=== PATIENT | female | born 1955 | race Caucasian/White ===

== ENCOUNTER 2019-07-17 11:16 | Emergency (ER) | payer SELFPAY ==
--- OUTSIDE RECORDS SUMMARY | 2019-07-17 11:19 | XMS REPORT ---
:1955 Author Organization eClinicalWorks Care Team Providers Name Role Phone Kasie Hernandez Provider Role Unavailable Allergies, Adverse Reactions, Alerts Substance Reaction Event Type N.K.D.A. Info Not Available Non Drug Allergy Problems Problem Type Condition Code Onset Dates Condition Status Assessment Hypertension I10 Active Assessment Anxiety F41.9 Active Problem Unspecified sprain of unspecified S73.109A Active hip, initial encounter Problem Hypertension I10 Active Problem Screening for breast cancer Z12.31 Active Problem Pure hypercholesterolemia E78.00 Active Problem Anxiety F41.9 Active Problem Gastro-esophageal reflux disease K21.9 Active without esophagitis Medications Medication Code Code Instructions Start End Date Status Dosage System Date Lisinopril [facility] 69079387071 10 Orally Once a Active take one day tablet by mouth daily Paxil [facility] 00191035837 20 Orally Once a Active take one day tablet by mouth daily Diclofenac [facility] 95398113403 50 MG Orally Active 1 tablet Sodium Twice a day with food or milk Results No Known Results Summary Purpose eClinicalWorks Submission
--- NOTE | 2019-07-17 13:34 | RAD REPORT ---
EXAM DESCRIPTION: RAD - Hip Right 2 View - 07/17/2019 1:26 pm CLINICAL HISTORY: PAIN COMPARISON: No comparisons FINDINGS: No acute fracture or dislocation seen. No AVN identified. Mild osteoarthritis.
--- NOTE | 2019-07-17 13:42 | ER ---
Nurse's Notes [facility] Name: Joselyn Gomes Age: 63 yrs Sex: Female : 1955 Arrival Date: 07/17/2019 Time: 11:19 Bed 24 Private MD: Diagnosis: Pain in right hip Presentation: 07/17 11:46 Presenting complaint: Patient states: "a couple weeks ago I was on a ladder and I fell ss into a bucket of Kathryn lights, I had a few bumps and bruises, but now my hip is starting to hurt." C/o R hip pain x 1 week. Transition of care: patient was not received from another setting of care. Onset of symptoms is unknown. Risk Assessment: Do you want to hurt yourself or someone else? Patient reports no desire to harm self or others. Initial Sepsis Screen: Does the patient meet any 2 criteria? No. Patient's initial sepsis screen is negative. Does the patient have a suspected source of infection? No. Patient's initial sepsis screen is negative. Care prior to arrival: None. 11:46 Method Of Arrival: Ambulatory ss 11:46 Acuity: MISTI 4 ss Historical: - Allergies: 11:47 No Known Allergies; ss - PMHx: 11:47 Hypertension; Anxiety; ss - PSHx: 11:47 Cholecystectomy; Tonsillectomy; Hernia repair; ss - Immunization history:: Adult Immunizations up to date. - Social history:: Smoking status: Patient denies any tobacco usage or history of. - Ebola Screening: : Patient denies exposure to infectious person Patient denies travel to an Ebola-affected area in the 21 days before illness onset. Screenin:22 Abuse screen: Denies threats or abuse. Denies injuries from another. Nutritional mg2 screening: No deficits noted. Tuberculosis screening: No symptoms or risk factors identified. Fall Risk Fall in past 12 months (25 points). Assessment: 12:21 General: Appears in no apparent distress. comfortable, Behavior is calm, cooperative. mg2 Pain: Complains of pain in right hip. Neuro: Level of Consciousness is awake, alert, obeys commands, Oriented to person, place, time, situation. Cardiovascular: Capillary refill < 3 seconds Patient's skin is warm and dry. Respiratory: Airway is patent Respiratory effort is even, unlabored, Respiratory pattern is regular, symmetrical. GI: No signs and/or symptoms were reported involving the gastrointestinal system. : No signs and/or symptoms were reported regarding the genitourinary system. EENT: No signs and/or symptoms were reported regarding the EENT system. Derm: Skin is intact, is healthy with good turgor, Skin is pink, warm \\T\\ dry. normal. Musculoskeletal: Circulation, motion, and sensation intact. Capillary refill < 3 seconds, Reports pain in right hip. 13:15 Reassessment: Patient appears in no apparent distress at this time. Patient and/or mg2 family updated on plan of care and expected duration. Pain level reassessed. Patient is alert, oriented x 3, equal unlabored respirations, skin warm/dry/pink. Vital Signs: 11:47 BP 138 / 93; Pulse 69; Resp 17; Temp 98.2(TE); Pulse Ox 98% ; Weight 72.12 kg; Height 5 ss ft. 1 in. (154.94 cm); Pain 0/10; 13:15 BP 136 / 86; Pulse 65; Resp 18; Pulse Ox 100% on R/A; mg2 11:47 Body Mass Index 30.04 (72.12 kg, 154.94 cm) ED Course: 11:19 Patient arrived in ED. ds1 11:47 Triage completed. ss 11:47 Arm band placed on left wrist. ss 11:52 Karyn Brock FNP-C is [facility]. kb 11:52 Cyndy Bruno MD is Attending Physician. kb 11:55 Duglas Walters, BECKY is Primary Nurse. mg2 12:23 Patient has correct armband on for positive identification. mg2 12:23 No provider procedures requiring assistance completed. Patient did not have IV access mg2 during this emergency room visit. 13:26 XRAY Hip RIGHT 2 view In Process Unspecified. EDMS Administered Medications: No medications were administered Outcome: 13:41 Discharge ordered by . kb 13:49 Discharged to home ambulatory. mg2 13:49 Condition: stable 13:49 Discharge instructions given to patient, Instructed on discharge instructions, follow up and referral plans. medication usage, Demonstrated understanding of instructions, follow-up care, medications, Prescriptions given X 2. 13:49 Patient left the ED. mg2 Signatures: Dispatcher [employer] EDMS Karyn Brock FNP-C FNP-Ckb Sanford, Charlee ds1 Bhavya Galvez, RN RN ss Duglas Walters, RN RN mg2
--- NOTE | 2019-07-17 13:43 | EDPHYS ---
Physician Documentation [facility] Name: Joselyn Gomes Age: 63 yrs Sex: Female : 1955 Arrival Date: 07/17/2019 Time: 11:19 Bed 24 Private MD: ED Physician Cyndy Bruno HPI: 07/17 13:44 This 63 yrs old Female presents to ER via Ambulatory with complaints of Hip kb Pain. 13:44 The patient or guardian reports pain. that occurred at home, sustained from a fall, kb There is no obvious deformity, The patient is able to self ambulate. The patient is able to bear partial body weight. There is no radiation of the patient's discomfort. The complaints affect the right hip. Onset: The symptoms/episode began/occurred 1 week(s) ago. Modifying factors: The symptoms are alleviated by nothing, the symptoms are aggravated by weight bearing. Associated signs and symptoms: Loss of consciousness: the patient experienced no loss of consciousness, Pertinent positives: None. Severity of symptoms: At their worst the symptoms were moderate, in the emergency department the symptoms are unchanged. The patient has not experienced similar symptoms in the past. The patient has not recently seen a physician. Pt reports she fell about a week and a half ago. States she didn't have any pain at first, but then her right hip started hurting. . Historical: - Allergies: 11:47 No Known Allergies; ss - PMHx: 11:47 Hypertension; Anxiety; ss - PSHx: 11:47 Cholecystectomy; Tonsillectomy; Hernia repair; ss - Immunization history:: Adult Immunizations up to date. - Social history:: Smoking status: Patient denies any tobacco usage or history of. - Ebola Screening: : Patient denies exposure to infectious person Patient denies travel to an Ebola-affected area in the 21 days before illness onset. ROS: 13:43 Constitutional: Negative for fever, chills, and weight loss, Cardiovascular: Negative kb for chest pain, palpitations, and edema, Respiratory: Negative for shortness of breath, cough, wheezing, and pleuritic chest pain, Abdomen/GI: Negative for abdominal pain, nausea, vomiting, diarrhea, and constipation, Back: Negative for injury and pain, Skin: Negative for injury, rash, and discoloration, Neuro: Negative for headache, weakness, numbness, tingling, and seizure. 13:43 MS/extremity: Positive for pain, tenderness, of the right hip. Exam: 13:43 Constitutional: This is a well developed, well nourished patient who is awake, alert, kb and in no acute distress. Head/Face: Normocephalic, atraumatic. Neck: Trachea midline, no thyromegaly or masses palpated, and no cervical lymphadenopathy. Supple, full range of motion without nuchal rigidity, or vertebral point tenderness. No Meningismus. Chest/axilla: Normal chest wall appearance and motion. Nontender with no deformity. No lesions are appreciated. Cardiovascular: Regular rate and rhythm with a normal S1 and S2. No gallops, murmurs, or rubs. Normal PMI, no JVD. No pulse deficits. Respiratory: Lungs have equal breath sounds bilaterally, clear to auscultation and percussion. No rales, rhonchi or wheezes noted. No increased work of breathing, no retractions or nasal flaring. Abdomen/GI: Soft, non-tender, with normal bowel sounds. No distension or tympany. No guarding or rebound. No evidence of tenderness throughout. Skin: Warm, dry with normal turgor. Normal color with no rashes, no lesions, and no evidence of cellulitis. Neuro: Awake and alert, GCS 15, oriented to person, place, time, and situation. Cranial nerves II-XII grossly intact. Motor strength 5/5 in all extremities. Sensory grossly intact. Cerebellar exam normal. Normal gait. 13:43 Musculoskeletal/extremity: Extremities: grossly normal except: noted in the right hip: pain, tenderness, ROM: intact in all extremities, Circulation is intact in all extremities. Sensation intact. Weight bearing: able to fully bear weight. Vital Signs: 11:47 BP 138 / 93; Pulse 69; Resp 17; Temp 98.2(TE); Pulse Ox 98% ; Weight 72.12 kg; Height 5 ss ft. 1 in. (154.94 cm); Pain 0/10; 13:15 BP 136 / 86; Pulse 65; Resp 18; Pulse Ox 100% on R/A; mg2 11:47 Body Mass Index 30.04 (72.12 kg, 154.94 cm) ss MDM: 11:54 Patient medically screened. kb 13:43 Data reviewed: vital signs, nurses notes. Data interpreted: Pulse oximetry: on room air kb is 100 %. Interpretation: normal. Counseling: I had a detailed discussion with the patient and/or guardian regarding: the historical points, exam findings, and any diagnostic results supporting the discharge/admit diagnosis, radiology results, the need for outpatient follow up, a family practitioner, to return to the emergency department if symptoms worsen or persist or if there are any questions or concerns that arise at home. 07/17 11:48 Order name: XRAY Hip RIGHT 2 view; Complete Time: 13:37 ss Administered Medications: No medications were administered Disposition: 15:52 Co-signature as Attending Physician, Cyndy Bruno MD. ma2 Disposition: 07/17/19 13:41 Discharged to Home. Impression: Pain in right hip. - Condition is Stable. - Discharge Instructions: Musculoskeletal Pain, Hip Pain. - Prescriptions for Skelaxin 800 mg Oral Tablet - take 1 tablet by ORAL route every 8 hours As needed; 21 tablet. Diclofenac Sodium 75 mg Oral Tablet, Delayed Release (E.C.) - take 1 tablet by ORAL route 2 times per day As needed; 30 tablet. - Medication Reconciliation Form, Thank You Letter, Antibiotic Education, Prescription Opioid Use form. - Follow up: Emergency Department; When: As needed; Reason: Worsening of condition. Follow up: Private Physician; When: 2 - 3 days; Reason: Recheck today's complaints, Continuance of care, Re-evaluation by your physician. Signatures: Dispatcher [employer] Karyn Adorno FNP-C FNP-Bhavya Vasquez RN RN Cyndy Bruno MD MD az2 Duglas Walters RN RN mg2 Corrections: (The following items were deleted from the chart) 13:49 13:41 07/17/2019 13:41 Discharged to Home. Impression: Pain in right hip. Condition is mg2 Stable. Forms are Medication Reconciliation Form, Thank You Letter, Antibiotic Education, Prescription Opioid Use. Follow up: Emergency Department; When: As needed; Reason: Worsening of condition. Follow up: Private Physician; When: 2 - 3 days; Reason: Recheck today's complaints, Continuance of care, Re-evaluation by your physician. kb
[2019-07-17 15:02] VITALS: TEMP 98.2
[2019-07-17 15:03] VITALS: BP 136/86; O2SAT 100
== END 2019-07-17 13:49 | disposition home or self-care (01) ==
LOC: ER 11:16
DX: M25.551 Pain in right hip (principal); I10 Essential (primary) hypertension; W19.XXXA Unspecified fall, initial encounter; Y93.9 Activity, unspecified; Y92.9 Unspecified place or not applicable
CPT/HCPCS: 99283

== ENCOUNTER 2019-12-01 05:56 | Day surgery (SDC) | payer OTHER ==
--- NOTE | 2019-11-24 08:28 | RAD REPORT ---
EXAM DESCRIPTION: RAD - Chest Pa And Lat (2 Views) - 11/24/2019 8:21 am CLINICAL HISTORY: preop, pending knee surgery COMPARISON: None TECHNIQUE: Frontal and lateral views of the chest were obtained. FINDINGS: The lungs are clear of a mass or consolidation. No significant failure or volume overload. Interstitial pattern is prominent but probably baseline for the patient. Minimal scarring seen at th e left apex. Heart size is normal and central vasculature is within normal limits. No pleural effu lorraine or pneumothorax seen. Thoracic spine degenerative changes are present. Slight wedging is seen a t the thoracolumbar junction. In the absence of any acute symptoms this is doubtful as being an acute finding. No aortic abnormality. IMPRESSION: No acute cardiopulmonary process. 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
[2019-11-24 09:04] LABS: Absolute Lymphocytes (CBC) 1.4 K/uL (0.7-4.9); Basophils % 0.7 % (0-1.3); Hematocrit 38.5 % (36.0-45.0); Lymphocytes % 32.1 % (15.3-44.8); MPV 8.4 fL (7.6-11.3); RBC Red Blood Cell Count 4.11 M/uL (3.86-4.86)
[2019-11-24 09:13] LABS: Potassium 4.1 mmol/L (3.5-5.1)
[2019-11-24 09:25] LABS: Protime INR 0.95
--- NOTE | 2019-11-25 12:59 | EKG ---
Test Date: 2019-11-24 Test Time: 07:05:13 Undertaker Helper: CHARISMA MEASUREMENT RESULTS: Intervals: Rate: 52 VA: 148 QRSD: 84 QT: 452 QTc: 420 [place]: P: 59 VA: 148 QRS: -11 T: 7 INTERPRETIVE STATEMENTS: Sinus bradycardia Voltage criteria for left ventricular hypertrophy Abnormal ECG No previous ECG available for comparison Electronically Signed On 11-25-19 12:59:11 CDT by Harry Christy
--- OUTSIDE RECORDS SUMMARY | 2019-12-01 05:58 | XMS REPORT ---
:1955 Author Organization eClinicalWorks Care Team Providers Name Role Phone Kasie Hernandez Provider Role Unavailable Allergies No Known Allergies Problems Problem Type Condition Code Onset Dates Condition Statu s Problem Gastro-esophageal reflux disease K21.9 Active without esophagitis Problem Pure hypercholesterolemia E78.00 Ac tive Assessment Medial meniscus tear S83.249A Active Assessment Abnormal MRI R93.89 Active Problem Internal derangement of left knee M23.92 Active Problem Acute pain of left knee M25.562 Acti ve Problem Abnormal MRI R93.89 Active Problem Hypertension I10 Active Problem Anxiety F41.9 Active Problem Screening for breast cancer Z12.31 Active Problem Unspecified sprain of unspecified S73.109A Active hip, initial encounter Medications No Known Medications Results No Known Results Summary Purpose eClinicalWorks Submission
--- OUTSIDE RECORDS SUMMARY | 2019-12-01 05:58 | XMS REPORT | Continuity of Care Document ---
:[address] [facility] Address [address] [place] [address] Care Team Providers Name Role Phone Unavailable Unavailable Unavailable Problems Condition Condition Condition Status Onset Resolution Last Treating Co mments Source Name Details Category Date Date Treatment Clinician Date Anxiety Anxiety Problem [facility] Gastro-eso Gastro-eso Problem Active [facility]al [facility] reflux reflux [facility] disease disease l without without Outpati esophagiti esophagiti en t s s Clinics Hypertensi Hypertensi Problem Active [facility]ics Unspecifie Unspecifie Problem Active [facility] d sprain d sprain [facility] of of [facility]oria unspecifie unspecifie l d hip, d hip, Outpati initial initial ent encounter encounter Clin ics Screening Screening Problem Active [facility] breast for breast [facility] - cancer cancer [facility] Pure Pure Problem Active [facility] hyperchole hyperchole [facility] - sterolemia sterolemia Me moria l [facility] Clinics Internal Internal Problem Active [facility] t derangemen derangemen [facility] - t of left t of left Beka braayn knee knee l [facility] Acute pain Acute pain Problem Active [facility] of left of left [facility] Abnormal Abnormal Problem Active [facility] MRI MRI [facility] Primary Primary Problem Active [facility] osteoarthr osteoarthr [facility] - itis of itis of Memoria left knee left knee l [facility] Allergies, Adverse Reactions, Alerts This patient has no known allergies or adverse reactions. Medications Ordered Filled Start Stop Current Ordering Indication Dosage Frequency Signature Comments Components Source Medication Medication Date Date Medication? Clinician (SIG) Name Name Lisinopril Lisinopril Yes Papa take one [facility] tablet by [facility] - mouth [facility]oria daily [facility] Paxil Paxil Yes Papa take one [facility] tablet by [facility] - mouth [facility]oria daily [facility] Paxil Paxil Yes Papa TAKE ONE [facility] TABLET BY [facility] - MOUTH Memoria DAILY [facility] Procedures This patient has no known procedures. Encounters Start End Encounter Admission Attending Care Care Encounter Source Date/Time Date/Time Type Type Clinicians Facility Department ID 2019-11-30 2019-11-30 [facility] [id number] [facility] [address] 09[facility] 09[facility]26[facility] 2019-11-27 2019-11-27 [facility] [id number] [address] 18:25:00 18:25:00 [facility] 2019-10-23 2019-10-23 [facility] [id number] [facility] [address] 14:00:00 14:00:00 [facility] 2019-09-29 2019-09-29 [facility] [id number] [facility] 11:20:00 11:20:00 [facility] 2019-09-29 2019-09-29 [facility] [id number] [facility] [address] 09[facility]00[facility]00 09:00:00 [facility] 2019-09-06 2019-09-06 [facility] [id number] [address] 09:56:00 09:56:00 t [facility] ent Clinics 2019-08-29 2019-08-29 [facility] [id number] [address] 10:40:00 10:40:00 [facility] 2019-03-15 2019-03-15 [facility] [id number] 10[facility]00:00 10:00:00 [facility] Outpati ent Clinics 2018-11-01 2018-11-01 [facility] [id number] [facility] 14[facility]56:00 14:56:00 [facility] Outpati ent Clinics 2018-09-22 2018-09-22 [facility] [id number] [facility] 13:13:00 13:13:00 [facility] Outpati ent Clinics 2018-09-12 2018-09-12 [facility] [id number] [address] 11:00:00 11:00:00 [facility] Outpati ent Clinics 2018-02-22 2018-02-22 Outpatient Angel Luis Hein [id number] [facility] 12:19:[facility] 12:19:00 Alaina Foley [facility] Clin[facility] 2018-02-21 2018-02-21 [facility] [id number] [facility] 09:00:00 09:00:00 [facility] Outpati ent Clinics Results This patient has no known results.
--- OUTSIDE RECORDS SUMMARY | 2019-12-01 05:59 | XMS REPORT ---
:1955 Author Organization eClinicalWorks Care Team Providers Name Role Phone Kasie Hernandez Provider Role Unavailable Allergies No Known Allergies Problems Problem Type Condition Code Onset Dates Condition Statu s Problem Pure hypercholesterolemia E78.00 Ac tive Problem Gastro-esophageal reflux disease K21.9 Active without esophagitis Problem Unspecified sprain of unspecified S73.109A Active hip, initial encounter Problem Abnormal MRI R93.89 Active Problem Internal derangement of left knee M23.92 Active Problem Primary osteoarthritis of left M17.12 Active knee Problem Hypertension I10 Active Problem Anxiety F41.9 Active Problem Acute pain of left knee M25.562 Acti ve Problem Screening for breast cancer Z12.31 Active Medications No Known Medications Results No Known Results Summary Purpose eClinicalWorks Submission
--- OUTSIDE RECORDS SUMMARY | 2019-12-01 05:59 | XMS REPORT ---
:1955 Author Organization eClinicalWorks Care Team Providers Name Role Phone Papa Arboleda Provider Role Unavailable Allergies, Adverse Reactions, Alerts Substance Reaction Event Type N.K.D.A. Info Not Available Non Drug Allergy Problems Problem Type Condition Code Onset Dates Condition Statu s Problem Pure hypercholesterolemia E78.00 Ac tive Problem Gastro-esophageal reflux disease K21.9 Active without esophagitis Problem Unspecified sprain of unspecified S73.109A Active hip, initial encounter Assessment Complex tear of medial meniscus of S83.232A Active left knee as current injury, initial encounter Assessment Primary osteoarthritis of left M17.12 Active knee Assessment Pain in joint of left knee M25.562 A ctive Problem Abnormal MRI R93.89 Active Problem Internal derangement of left knee M23.92 Active Problem Primary osteoarthritis of left M17.12 Active knee Problem Hypertension I10 Active Problem Anxiety F41.9 Active Problem Acute pain of left knee M25.562 Acti ve Problem Screening for breast cancer Z12.31 Active Medications Medication Code System Code Instructions Start End Date Status Dos age Date Paxil [facility] 61026504502 20 Orally Once a Active parag e one day tablet by mouth daily Paxil [facility] 26164505649 20 MG Active TAKE ONE TABLET BY MOUTH DAILY Lisinopril [facility] 74909845295 10 MG Active TAKE ONE TABLET BY MOUTH DAILY Lisinopril [facility] 56299951477 10 Orally Once a Active take one day tablet by mouth daily Results No Known Results Summary Purpose eClinicalWorks Submission
--- OUTSIDE RECORDS SUMMARY | 2019-12-01 05:59 | XMS REPORT ---
:1955 Author Organization eClinicalWorks Care Team Providers Name Role Phone Papa Arboleda Provider Role Unavailable Allergies No Known Allergies [...]
--- OUTSIDE RECORDS SUMMARY | 2019-12-01 05:59 | XMS REPORT ---
[...] Start End Date Status Dos age Date Lisinopril [facility] 89549247947 10 MG Active TAKE ONE TABLET BY MOUTH DAILY Paxil FORMER[facility] NAMED [facility] 55824135300 20 Orally Once a Active parag e one day tablet by mouth daily Paxil [facility] NAMED [facility] 05463166465 20 MG Active TAKE ONE TABLET BY MOUTH DAILY Lisinopril [facility] NAMED [facility] 39189865569 10 Orally Once a Active take one day tablet by mouth daily Results No Known Results Summary Purpose eClinicalWorks Submission
[2019-12-01] MEDS ORDERED: Ringers Lactate 1,000 ML IV ONE ×2 (06:15→08:40)
[2019-12-01] MEDS ORDERED: CEFAZOLIN/SWI 1gm 1 GM/10 ML SYR ONE (06:15)
[2019-12-01] MEDS ORDERED: BUPIVACAINE 0.25% PF 30 ML VIAL ONE (06:50)
[2019-12-01] MEDS ORDERED: propofoL 200 MG/20 ML VIAL IV ONE (06:53)
[2019-12-01] MEDS ORDERED: FENTANYL CITR 100 MCG/2 ML ONE (06:53)
[2019-12-01] MEDS ORDERED: dexAMETHasone 10 MG/ML VIAL ONE (06:54)
[2019-12-01] MEDS ORDERED: MIDAZOLAM HCL 2 MG/2 ML INJ ONE (06:54)
[2019-12-01] MEDS ORDERED: KETOROLAC 30 MG/ML INJ ONE (06:54)
[2019-12-01] MEDS ORDERED: ONDANSETRON 4 MG/2 ML VIAL ONE (06:54)
[2019-12-01] MEDS ORDERED: LIDOCAINE 2% MPF 5 ML VIAL ONE (06:54)
[2019-12-01] MEDS ORDERED: EPHEDRINE SULF 50 MG/ML VIAL ONE (07:17)
--- NOTE | 2019-12-01 08:21 | P.BOP ---
Preoperative diagnosis: left knee medial meniscus tear Postoperative diagnosis: same, left knee medial plica Primary procedure: left knee arthroscopic partial medial meniscectomy Secondary procedure: left knee arthroscopic plica excision Line Servicer: NONE,NONE Estimated blood loss: 5 cc Specimen: none Findings: see dictation Anesthesia: General Complications: None Implants: none Fluids & blood products: per anesthesia record; TT: 40 mins @ 300 mmHg Transferred to: Recovery Room Condition: Good
[2019-12-01] MEDS ORDERED: HYDROCODONE/APAP 5/325 MG TAB ONE (09:16)
[2019-12-01 09:26] VITALS: BP 116/67; TEMP 98.1; O2SAT 97
--- NOTE | 2019-12-01 22:06 | OP ---
Date of Procedure: 12/01/2019 Surgeon: Papa Arboleda MD Preoperative Diagnosis: Left knee medial meniscus tear. Postoperative Diagnoses: 1. Left knee medial meniscus tear. 2. Left knee medial plica. Procedure Performed: Left knee arthroscopic partial medial meniscectomy, left knee arthroscopic medial plica excision. Anesthesia: General LMA. Fluids: Per anesthesia record. Estimated Blood Loss: 5 cc. Complications: None. Implants: None. Tourniquet Time: 20 minutes at 300 mmHg. Indications For Procedure: Joselyn is a 64-year-old female who presented to my clinic with signs and symptoms and MRI findings of consistent with left knee medial meniscus tear. I discussed with the patient at length risks and benefit associated with operative and nonoperative treatment. She expressed understanding and elected to proceed with operative treatment. Description Of Procedure: After informed consent was obtained, the patient was identified in the preoperative holding area. The left lower extremity was marked. The patient was then brought to the operating room, transferred to the operative table in a supine fashion and placed under general anesthesia. The left lower extremity was then prepped and draped in usual sterile fashion. A time-out was initiated. The correct patient and procedure were confirmed and identified. The patient did receive preoperative prophylactic antibiotics. Left lower extremity was then exsanguinated using Esmarch and the tourniquet was inflated to 300 mmHg. Standard anteromedial and anterolateral portals were created and the arthroscope was brought in via the anterior lateral portal and diagnostic arthroscopy was performed. 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 Medial and lateral gutters were negative for any loose body. There was noted to be a medial plica that was noted below medial femoral condyle. Arthroscope was then brought in the medial compartment. It was noted the patient to have some type 2 chondromalacia of the medial femoral condyle as well as the medial tibial plateau. There was a complex tear of the posterior horn of the medial meniscus. A partial medial meniscectomy was performed using meniscal biters and arthroscopic shaver to smooth meniscal borders. The arthroscope was then brought into the intercondylar notch. There was no tearing of the ACL and PCL and the ACL and PCL were stable to probe. The arthroscope was then brought to the lateral compartment where the patient was noted to have an intact lateral meniscus and mild grade 2 chondromalacia changes of the lateral tibial plateau. The arthroscope was then brought back into the patellofemoral joint and a medial plica excision was performed using arthroscopic shaver and radiofrequency ablator. Hemostasis was achieved. The arthroscopic instruments were removed without complication. Wound was then irrigated thoroughly with normal saline. Portals were approximated using 3-0 Monocryl. Sterile dressings were applied. Tourniquet was let down. The patient was awakened and transferred to PACU in stable condition. Postoperative Plan: Ms. Gomes will be weightbearing as tolerated. She will follow up in my clinic in 1 week for wound check. Physical Therapy will be consulted. The patient will follow the post meniscectomy protocol. RADHA/SAJAN Voice ID: [id number] Report ID: [id number] MTDD
== END 2019-12-01 09:50 | disposition home or self-care (01) ==
LOC: OR 05:56
PROVIDERS: ATTEND Orthopaedic Surgery Sports Medicine
PROC: 0SBD4ZZ Excision of Left Knee Joint, Percutaneous Endoscopic Approach (ICD-10-PCS; principal; 2019-12-01 07:00)
DX: S83.242A Other tear of medial meniscus, current injury, left knee, initial encounter (principal); I10 Essential (primary) hypertension; F41.9 Anxiety disorder, unspecified; K21.9 Gastro-esophageal reflux disease without esophagitis; Z11.59 Encounter for screening for other viral diseases
CPT/HCPCS: 29881; 93005; 85025; 80048; 36415; 85610; 85730; 71046; J2704; J2250; J3010; J1100; J0690; J7120 ×2; J2405

== ENCOUNTER 2021-11-13 14:18 | Emergency (ER) | payer MEDICARE, OTHER ==
--- OUTSIDE RECORDS SUMMARY | 2021-11-13 14:21 | XMS REPORT | Continuity of Care Document ---
:1955 Author Organization [facility] t Address [address] [place] [address] Care Team Providers Name Role Phone Mary Attending Clinician Unavailable Filemon Siddiqui Attending Clinician Unavailable Filemon Siddiqui Admitting Clinician Unavailable Payers Payer Name Policy Type Policy Number Effective Date Expiration Date S ource Problems This patient has no known problems. Allergies, Adverse Reactions, Alerts Allergy Allergy Status Severity Reaction(s) Onset Inactive Treating Comm ents Source Name Type Date Date Clinician No Known DA Active U [facility] Allergie 3-16 [place] s 00:00: d 00 [facility] Medications Ordered Filled Start Stop Current Ordering Indication Dosage Frequency Signature Comments Components Source Medication Medication Date Date Medication? Clinician (SIG) Name Name Lisinopril Lisinopril Yes Papa TAKE ONE Common Arboleda TABLET BY [facility] Paxil Paxil Yes Papa take one Common Arboleda tablet by [facility] daily [facility] Paxil Paxil Yes Papa TAKE ONE Common Arboleda TABLET BY [facility] MOUTH - [facility] Procedures This patient has no known procedures. Encounters Start End Encounter Admission Attending Care Care Encounter Source Date/Time Date/Time Type Type Clinicians Facility Department ID 2021-07-23 Outpatient [place], STL[facility] ST[facility] [id number] Common 14:36:40 Kasie [facility] 2021-07-23 Outpatient [place], STLMLC STLMLC [id number] Common 14:23:54 Kasie 11895 [facility] 2021-07-23 Outpatient [place], STLMLC STLMLC [id number] Common 13:56:17 Kasie 37341 [facility] 2021-07-23 Outpatient [place], STLMLC STLMLC [id number] Common 13:31:02 Kasie 45380 [facility] 2021-07-23 Outpatient [place], STLMLC STLMLC [id number] Common 12:48:56 Kasie 60939 [facility] 2021-07-23 Outpatient [place], STLMLC STLMLC [id number] Common 12:32:02 Kasie 80899 [facility] 2021-07-23 Outpatient [place], STLMLC STLMLC [id number] Common 12:30:02 Kasie 91641 [facility] 2021-07-23 Outpatient [place], STLMLC STLMLC [id number] Common 11:53:01 Kasie 26696 [facility] 2021-07-23 Outpatient [place], STLMLC STLMLC [id number] Common 11:25:26 Kasie 62214 [facility] 2021-11-12 2021-11-12 ambulatory STLMLC STLMLC [id number] Common 00:00:00 00:00:00 [facility] 2021-11-07 2021-11-07 ambulatory STLMLC STLMLC [id number] Common 00:00:00 00:00:00 [facility] 2021-09-23 2021-09-23 ambulatory STLMLC STLMLC [id number] Common 00:00:00 00:00:00 [facility] 2021-09-11 2021-09-13 Inpatient SYLVIE Siddiqui [facility].01 [id number] [id number] [facility] 13:10:00 13:40:00 Kavita [id number] [facility] 2021-09-11 2021-09-13 [id number] [facility] 13:10:00 13:40:00 Kavita 40 [facility] 2021-08-26 2021-08-26 ambulatory STLMLC STLMLC [id number] Common 00:00:00 00:00:00 [facility] 2021-08-21 2021-08-21 ambulatory STLMLC STLMLC [id number] Common 00:00:00 00:00:00 [facility] 2021-07-09 2021-07-09 ambulatory STLMLC STLMLC [id number] Common 00:00:00 00:00:00 [facility] 2021-07-03 2021-07-03 ambulatory STLMLC STLMLC [id number] Common 00:00:00 00:00:00 [facility] 2021-06-09 2021-06-09 ambulatory STLMLC STLMLC [id number] Common 00:00:00 00:00:00 [facility] 2021-04-27 2021-04-27 ambulatory STLMLC STLMLC [id number] Common 00:00:00 00:00:00 [facility] 2021-04-02 2021-04-02 Outpatient STLMLC STLMLC [id number] Common 00:00:00 00:00:00 [facility] 2021-04-02 2021-04-02 Outpatient STLMLC STLMLC [id number] Common 00:00:00 00:00:00 [facility] 2021-01-28 2021-01-28 Outpatient STLMLC STLMLC [id number] Common 00:00:00 00:00:00 [facility] 2021-01-27 2021-01-27 Outpatient STLMLC STLMLC [id number] Common 00:00:00 00:00:00 [facility] 2020-10-10 2020-10-10 Outpatient STLMLC STLMLC [id number] Common 00:00:00 00:00:00 [facility] 2020-10-07 2020-10-07 Outpatient STLMLC STLMLC [id number] Common 00:00:00 00:00:00 [facility] 2020-10-02 2020-10-02 Outpatient STLMLC STLMLC [id number] Common 00:00:00 00:00:00 [facility] 2020-08-19 2020-08-19 Outpatient STLMLC STLMLC [id number] Common 00:00:00 00:00:00 [facility] 2020-04-24 2020-04-24 Outpatient STLMLC STLMLC [id number] Common 00:00:00 00:00:00 [facility] 2020-04-15 2020-04-15 Outpatient STLMLC STLMLC [id number] Common 00:00:00 00:00:00 [facility] 2020-04-03 2020-04-03 Outpatient STLMLC STLMLC [id number] Common 00:00:00 00:00:00 [facility] 2020-01-04 2020-01-04 [facility] [id number] Common 09:45:00 09:45:00 [facility] 2019-12-07 2019-12-07 [facility] [id number] Common 14:30:00 14:30:00 [facility] 2019-11-30 2019-11-30 [facility] [id number] Common 09:26:00 09:26:00 [facility] 2019-11-27 2019-11-27 [facility] [id number] Common 18:25:00 18:25:00 [facility] 2019-10-23 2019-10-23 [facility] [id number] Common 14:00:00 14:00:00 [facility] 2019-09-29 2019-09-29 [facility] [id number] Common 11:20:00 11:20:00 [facility] 2019-09-29 2019-09-29 [facility] [id number] Common 09:00:00 09:00:00 [facility] 2019-09-06 2019-09-06 [facility] [id number] Common 09:56:00 09:56:00 [address] [facility] [address] [facility] 2019-08-29 2019-08-29 [facility] [id number] Common 10:40:00 10:40:00 t [facility] [address] [facility] 2019-03-15 2019-03-15 [facility] [id number] Common 10:00:00 10:00:00 t [facility] [address] [facility] 2018-11-01 2018-11-01 [facility] [id number] Common 14:56:00 14:56:00 t [facility] [address] [facility] 2018-09-22 2018-09-22 [facility] [id number] Common 13:13:00 13:13:00 t [facility] [address] [facility] 2018-09-12 2018-09-12 [facility] [id number] Common 11:00:00 11:00:00 t [facility] [address] [facility] 2018-02-22 2018-02-22 Outpatient Angel Luis Hein [id number] Common 12:19:00 12:19:00 Alaina Dove rodri DO DO [facility] 2018-02-21 2018-02-21 [facility] [id number] Common 09:00:00 09:00:00 t [facility] it Road [facility] Results Test Description Test Time Test Comments Results Result Comments Source BASIC METABOLIC PANEL 2021-09-13 09:34:00 Test Item Value Reference Range Interpretation Comme nts SODIUM (test code = NA) 144 mmol/L 134-147 N POTASSIUM (test code = K) 4.1 mmol/L 3.4-5.0 N CHLORIDE (test code = CL) 109 mmol/L 100-108 H CARBON DIOXIDE (test code = CO2) 32 mmol/L 21-32 N ANION GAP (test code = GAP) 3.0 GAP calc 4.0-15.0 L GLUCOSE (test code = GLU) 92 MG/DL 70-110 N BLOOD UREA NITROGEN (test code = BUN) 8 MG/DL 7-18 N GLOMERULAR FILTRATION RATE (test code = GFR) >=60 max estimate estG FR >60 CREATININE (test code = CREAT) 0.8 MG/DL 0.6-1.0 N CALCIUM (test code = CA) 8.9 MG/DL 8.5-10.1 N [id number] 05:01:00 Test Item Value Reference Range Interpretation Comments CREATININE (test code = CREAT) 0.8 MG/DL 0.6-1.0 N Comment: Stat creatinine if not already performedHGB [id number] 05:00:00 Test Item Value Reference Range Interpretation Comments HEMOGLOBIN (test code = HGB) 10.8 G/DL 10.4-14.9 N HEMATOCRIT (test code = HCT) 34.6 % 31.5-44.1 N - XR CHEST 1 [id number] 12:39:00 [facility] FIN[facility]SELAND[facility]: HETAL CAM Ignacia : 1955 Sex: F Name: HETAL CAM Zenda : 1955 Age/S: 66 / F [address] [address] [facility] Unit #: [id number] Loc: [place] [address] Phys: Edison Chamorro MD Acct: [id number] Dis Date: Status: ADM IN PHONE #: [phone] Exam Date: 09/11/2021 1232 FAX #: Reason: PRE OP EXAMS:CPT: [id number] XR CHEST 1 V 63574 Fluoro Time: DAP (Gy m2): Air Kerma (mGy): B2 EXAM: - XR CHEST 1 V DATE: 09/11/2021 11:10 AM HISTORY: PRE OP COMPARISON: None FINDINGS: No airspace consolidation or pleural effusions. No pneumothorax. The cardiovascular silhouette is within normal limits. No bony lesions. IMPRESSION: No acute cardiopulmonary abnormality. at 1239 Reported and signed by: Kathleen Carrillo M.D. CC: Kasie Hernandez; Kavita Siddiqui MD; Edison Chamorro MD PAGE 1 Signed Report Name: HETAL CAM Zenda : 1955 Age/S:66 / F [address] [place] [address] Unit #: [id number] Loc: [place] [address] Phys: Edison Chamorro MD Acct: [id number] Dis Date: Status: ADM IN PHONE #: [phone] Exam Date: 09/11/2021 1232 FAX #: Reason: PRE OP EXAMS: CPT: [id number] XR CHEST 1 V 85380 Fluoro Time: DAP (Gy m2): Air Kerma (mGy): <Continued> Technologist: Karyn Kaufman,RT(R) Trnscb Date/Time: 09/11/2021 (1239) [email or web address] Orig Print D/T: S: 09/11/2021 (1242) PAGE 2 Signed ReportCOVID 19 INHOUSE [id number] 12:17:00 Test Item Value Reference Range Interpretation Comments COVID 19 INHOUSE AG NEGATIVE Negative Per caryl facturer, (test code = negative result s should [id number]) be treated aspr esumptive and, if inconsi stent with clinical signs andsymptoms or necessary for patient man agement, should betested with an alternative mol ecular assay. Negative resultsdo not preclude SA RS-CoV-2 infection and s hould not be usedas the s ole basis for patient man agement decisions. Neg ative results should be considered in t he context of apatient's r ecent exposures, hist ory, presence of cli nicalsigns and symptoms co nsistent with COVID-19. BASIC METABOLIC [id number] 12:12:00 Test Item Value Reference Range Interpretation Comments SODIUM (test code = NA) 139 mmol/L 134-147 N POTASSIUM (test code = 4.1 mmol/L 3.4-5.0 N K) CHLORIDE (test code = 106 mmol/L 100-108 N CL) CARBON DIOXIDE (test 28 mmol/L 21-32 N code = CO2) ANION GAP (test code = 5.0 GAP calc 4.0-15.0 N GAP) GLUCOSE (test code = 98 MG/DL 70-110 N GLU) BLOOD UREA NITROGEN 13 MG/DL 7-18 N (test code = BUN) GLOMERULAR FILTRATION >=60 max estimate >60 RATE (test code = GFR) estGFR CREATININE (test code = 0.7 MG/DL 0.6-1.0 N CREAT) CALCIUM (test code = CA) 9.7 MG/DL 8.5-10.1 N CBC W/AUTO [id number] 12:01:00 Test Item Value Reference Range Interpretation Comments WHITE BLOOD CELL (test code = 7.3 K/mm3 3.5-11.0 N WBC) RED BLOOD CELL (test code = 4.05 M/mm3 4.70-6.10 L RBC) HEMOGLOBIN (test code = HGB) 11.8 G/DL 10.4-14.9 N HEMATOCRIT (test code = HCT) 38.6 % 31.5-44.1 N MEAN CELL VOLUME (test code = 95.3 Fl 84.5-98.6 N MCV) MEAN CELL HGB (test code = MCH) 29.1 pg 27.0-34.2 N MEAN CELL HGB CONCETRATION 30.6 G/DL 31.5-34.0 L (test code = MCHC) RED CELL DISTRIBUTION WIDTH 13.8 SD 11.5-14.5 N (test code = RDW) PLATELET COUNT (test code = 372 K/mm3 150-450 N PLT) MEAN PLATELET VOLUME (test code 9.40 fL 7.0-10.5 N = MPV) NEUTROPHIL % (test code = NT%) 61.4 % 40-76 N IMMATURE GRANULOCYTE % (test 0.1 % 0.0-5.0 N code = IG%) LYMPHOCYTE % (test code = LY%) 28.4 % 20.5-51.1 N MONOCYTE % (test code = MO%) 7.8 % 1.7-9.3 N EOSINOPHIL % (test code = EO%) 1.5 % 0.0-6.0 N BASOPHIL % (test code = BA%) 0.8 % 0.0-2.0 N NUCLEATED RBC % (test code = 0.0 /100WBC% 0.0-1.0 N NRBC%) NEUTROPHIL # (test code = NT#) 4.5 K/mm3 1.8-7.6 N IMMATURE GRANULOCYTE # (test 0.01 x10 3/uL 0.00-0.03 N code = IG#) LYMPHOCYTE # (test code = LY#) 2.1 K/mm3 0.6-3.2 N MONOCYTE # (test code = MO#) 0.6 K/mm3 0.3-1.1 N EOSINOPHIL # (test code = EO#) 0.1 K/mm3 0.0-0.4 N BASOPHIL # (test code = BA#) 0.1 K/mm3 0.0-0.1 N NUCLEATED RBC # (test code = 0.0 K/mm3 0.0-0.1 N NRBC#) MANUAL DIFF REQUIRED (test code NO DIFF/SCN CRITERIA = MDIFF)
[2021-11-13 16:13] LABS: Hematocrit 31.4 % (36.0-45.0); Lymphocytes % 8.1 % (15.3-44.8); MPV 7.3 fL (7.6-11.3); RBC Red Blood Cell Count 3.57 M/uL (3.86-4.86)
[2021-11-13] MEDS ORDERED: KETOROLAC 30 MG/ML INJ ONE (16:16)
[2021-11-13 16:33] LABS: Potassium 3.9 mmol/L (3.5-5.1)
--- NOTE | 2021-11-13 17:00 | RAD REPORT ---
EXAM DESCRIPTION: RAD - Hand Right 3 View - 11/13/2021 4:52 pm CLINICAL HISTORY: swelling, pain COMPARISON: No comparisons FINDINGS: Mild to moderate radiocarpal joint arthritic changes are present. Mild arthritic changes a lso noted involving the MCP as well as the DIP and PIP joints. Subtle erosions may be present which c ould indicate underlying inflammatory arthropathy.
--- NOTE | 2021-11-13 18:19 | ER ---
Nurse's Notes [facility] Name: Joselyn Gomes Age: 66 yrs Sex: Female : 1955 Arrival Date: 11/13/2021 Time: 14:19 Bed 15 Private MD: Kasie Hernandez Diagnosis: Right Hand Pain Presentation: 11/13 14:30 Chief complaint: Patient states: Right hand pain/numbness. Today my left hand is also ld1 beginning to bother me, starting to become numb. Coronavirus screen: At this time, the client does not indicate any symptoms associated with coronavirus-19. Ebola Screen: No symptoms or risks identified at this time. Initial Sepsis Screen: Does the patient meet any 2 criteria? No. Patient's initial sepsis screen is negative. Does the patient have a suspected source of infection? No. Patient's initial sepsis screen is negative. Risk Assessment: Do you want to hurt yourself or someone else? Patient reports no desire to harm self or others. Onset of symptoms was November 13, 2021. 14:30 Method Of Arrival: Ambulatory ld1 14:30 Acuity: MISTI 4 ld1 Triage Assessment: 14:32 General: Appears in no apparent distress. comfortable, Behavior is cooperative, ld1 appropriate for age, anxious, crying. Pain: Complains of pain in right hand and left hand Pain does not radiate. Pain currently is 4 out of 10 on a pain scale. EENT: No signs and/or symptoms were reported regarding the EENT system. Neuro: Level of Consciousness is awake, alert, obeys commands, Oriented to person, place, time, situation. Respiratory: Airway is patent Respiratory effort is even, unlabored. Musculoskeletal: Reports pain in right hand and left hand. Historical: - Allergies: 14:32 No Known Allergies; ld1 - PMHx: 14:32 Anxiety; Hypertension; ld1 - PSHx: 14:32 None; ld1 - Immunization history:: Adult Immunizations up to date, Client reports receiving the 2nd dose of the Covid vaccine. - Social history:: Smoking status: Patient denies any tobacco usage or history of. Patient/guardian denies using alcohol. Screenin:19 Abuse screen: Denies threats or abuse. Denies injuries from another. Nutritional bp screening: No deficits noted. Tuberculosis screening: No symptoms or risk factors identified. Fall Risk None identified. Assessment: 15:19 General: SEE TRIAGE NOTE. bp 17:00 Reassessment: No changes from previously documented assessment. Patient and/or family bp updated on plan of care and expected duration. Pain level reassessed. 18:42 Reassessment: PT D/C HOME AMBULATORY, DX WITH ARTHRITIS. bp Vital Signs: 14:30 BP 125 / 65; Pulse 77; Resp 18; Temp 98.3(TE); Pulse Ox 95% on R/A; Weight 71.21 kg; ld1 Height 5 ft. 1 in. (154.94 cm); Pain 4/10; 17:00 BP 108 / 50; Pulse 62; Resp 16; Pulse Ox 100% ; bp 18:44 BP 125 / 78; Pulse 61; Resp 16; Pulse Ox 100% ; bp 14:30 Body Mass Index 29.66 (71.21 kg, 154.94 cm) ld1 ED Course: 14:19 Patient arrived in ED. am2 14:19 Kasie Hernandez FNP-C is Private Physician. am2 14:32 Triage completed. ld1 14:32 Arm band placed on right wrist. ld1 14:33 Greg Acosta PA is PHCP. jm 14:33 Israel Blackburn MD is Attending Physician. jmm 15:14 Donavon Page, RN is Primary Nurse. bp 15:19 Patient has correct armband on for positive identification. Bed in low position. Call bp light in reach. Side rails up X2. Adult w/ patient. 16:08 Inserted saline lock: 20 gauge in right antecubital area, using aseptic technique. mb7 Blood collected. 16:09 CBC with Diff Sent. mb7 16:09 BMP Sent. mb7 16:54 Hand Right 3 View XRAY In Process Unspecified. EDMS 18:45 No provider procedures requiring assistance completed. IV discontinued, intact, bp bleeding controlled, No redness/swelling at site. Pressure dressing applied. Administered Medications: 16:15 Drug: Ketorolac 15 mg Route: IVP; Site: right antecubital; bp Medication: 15:19 VIS not applicable for this client. bp Outcome: 18:19 Discharge ordered by MD. jmm 18:44 Discharged to home ambulatory. bp 18:44 Condition: stable 18:44 Discharge instructions given to patient, Instructed on discharge instructions, follow up and referral plans. medication usage, Demonstrated understanding of instructions, follow-up care, medications, Prescriptions given X 2. 18:45 Patient left the ED. bp Signatures: Dispatcher [employer] EDMS Greg Acosta PA PA jmm Moreno, Amanda am2 Donavon Page, RN RN bp Willow Lunsford RN RN ld1 Autumn Corey 7 Corrections: (The following items were deleted from the chart) 14:33 14:32 PSHx: None; ld1 ld1 16:28 16:09 URIC ACID+C.LAB.BRZ drawn and sent. 7 EDKY
--- NOTE | 2021-11-13 18:20 | EDPHYS ---
Physician Documentation [facility] Name: Joselyn Gomes Age: 66 yrs Sex: Female : 1955 Arrival Date: 11/13/2021 Time: 14:19 Bed 15 Private MD: Kasie Hernandez ED Physician Israel Blackburn HPI: 11/13 15:16 This 66 yrs old Female presents to ER via Ambulatory with complaints of Numbness Of m Hand, Hand Pain, chills. 15:16 The patient or guardian reports pain. Onset: The symptoms/episode began/occurred jmm gradually, 1 week(s) ago. Modifying factors: The symptoms are alleviated by nothing, the symptoms are aggravated by nothing. Is a 66-year-old female with history of hypertension the presents emerged part with complaints of right hand pain and swelling began approximately 1 week ago. Patient was initially diagnosed with arthritis. Also complaining some numbness. States that symptoms with some steroids. Symptoms have returned Chelita yesterday was told by her PCP to go to the ER for further evaluation.. Historical: - Allergies: 14:32 No Known Allergies; ld1 - PMHx: 14:32 Anxiety; Hypertension; ld1 - PSHx: 14:32 None; ld1 - Immunization history:: Adult Immunizations up to date, Client reports receiving the 2nd dose of the Covid vaccine. - Social history:: Smoking status: Patient denies any tobacco usage or history of. Patient/guardian denies using alcohol. ROS: 15:16 Constitutional: Negative for fever, chills, and weight loss, Cardiovascular: Negative jmm for chest pain, palpitations, and edema, Respiratory: Negative for shortness of breath, cough, wheezing, and pleuritic chest pain. 15:16 MS/extremity: Positive for pain, swelling. 15:16 All other systems are negative. Exam: 15:16 Constitutional: This is a well developed, well nourished patient who is awake, alert, jmm and in no acute distress. Head/Face: atraumatic. Eyes: EOMI, no conjunctival erythema appreciated ENT: Moist Mucus Membranes Neck: Trachea midline, Supple Chest/axilla: Normal chest wall appearance and motion. Cardiovascular: Regular rate and rhythm. No edema appreciated Respiratory: Normal respirations, no respiratory distress appreciated Abdomen/GI: Non distended, soft Back: Normal ROM Skin: General appearance color normal 15:16 Musculoskeletal/extremity: Swelling noted to the right second and third metacarpal, painful range of motion appreciated, sensation is intact, less than 2-second distal cap refill, compartments are soft, full radial pulse, neurovascular intact. 15:16 Skin: Appearance: Color: normal in color. 15:16 Neuro: Orientation: is normal, Mentation: is normal, Memory: is normal. 15:16 Psych: Behavior/mood is pleasant, cooperative. Vital Signs: 14:30 BP 125 / 65; Pulse 77; Resp 18; Temp 98.3(TE); Pulse Ox 95% on R/A; Weight 71.21 kg; ld1 Height 5 ft. 1 in. (154.94 cm); Pain 4/10; 17:00 BP 108 / 50; Pulse 62; Resp 16; Pulse Ox 100% ; bp 18:44 BP 125 / 78; Pulse 61; Resp 16; Pulse Ox 100% ; bp 14:30 Body Mass Index 29.66 (71.21 kg, 154.94 cm) ld1 MDM: 15:16 Patient medically screened. marissa 18:18 Data reviewed: vital signs, nurses notes. Counseling: I had a detailed discussion with puja the patient and/or guardian regarding: the historical points, exam findings, and any diagnostic results supporting the discharge/admit diagnosis, lab results, radiology results, the need for outpatient follow up, to return to the emergency department if symptoms worsen or persist or if there are any questions or concerns that arise at home. ED course: Patient is alert nontoxic in appearance NAD. Pain is relieved in the ED with IV anti-inflammatories. Advised follow with hospital supervisor and otherwise given strict return precautions. Patient understood agrees plan of care.. 11/13 15:55 Order name: CBC with Diff; Complete Time: 16:36 [facility] 11/13 15:55 Order name: BMP; Complete Time: 16:36 [facility] 11/13 15:57 Order name: Hand Right 3 View XRAY; Complete Time: 17:21 [facility] 11/13 16:27 Order name: Uric Acid; Complete Time: 16:36 [facility] 11/13 15:55 Order name: Saline Lock; Complete Time: 16:09 [facility] Administered Medications: 16:15 Drug: Ketorolac 15 mg Route: IVP; Site: right antecubital; bp Disposition Summary: 11/13/21 18:19 Discharge Ordered Location: Home jm Condition: Stable jmm Diagnosis - Right Hand Pain [facility] Followup: jmm - With: Private Physician - When: 2 - 3 days - Reason: Recheck today's complaints, Continuance of care, Re-evaluation by your physician Discharge Instructions: - Discharge Summary Sheet jm - Arthritis jm Forms: - Medication Reconciliation Form [facility] - Thank You Letter [facility] - Antibiotic Education [facility] - Prescription Opioid Use [facility] Prescriptions: - Diclofenac Sodium 75 mg Oral Tablet Sustained Release - take 1 tablet by ORAL route 2 times per day; 30 tablet; Refills: 0, Product [facility] Selection Permitted - orphenadrine citrate 100 mg Oral Tablet Sustained Release - take 1 tablet by ORAL route 2 times per day As needed; 20 tablet; Refills: 0, jmm Product Selection Permitted Signatures: Dispatcher [employer] EDMS Israel Blackburn MD MD cha Mickail, Joel, PA PA Donavon Ortega, BECKY RN Willow Lunsford RN RN ld1 Corrections: (The following items were deleted from the chart) 14:33 14:32 PSHx: None; ld1 ld1 16:28 15:59 URIC ACID+C.LAB.BRZ ordered. EDWY EDMS
[2021-11-13 19:35] VITALS: TEMP 98.3
[2021-11-13 19:39] VITALS: O2SAT 100
[2021-11-13 19:41] VITALS: BP 125/78
== END 2021-11-13 18:45 | disposition home or self-care (01) ==
LOC: ER 14:18
DX: M79.641 Pain in right hand (principal); I10 Essential (primary) hypertension
CPT/HCPCS: 36415; 80048; 84550; 85025; 96374; 99284

== ENCOUNTER 2022-03-16 09:25 | Observation (INO) | payer OTHER ==
--- OUTSIDE RECORDS SUMMARY | 2022-03-16 09:29 | XMS REPORT | Continuity of Care Document ---
:1955 Author Organization [facility] t Address [address] [place] [address] Care Team Providers Name Role Phone Mary Kasie Attending Clinician Unavailable Kavita Siddiqui Attending Clinician Unavailable Kavita Siddiqui Admitting Clinician Unavailable Payers Payer Name Policy Type Policy Number Effective Date Expiration Date S ource Problems This patient has no known problems. Allergies, Adverse Reactions, Alerts Allergy Allergy Status Severity Reaction(s) Onset Inactive Treating Comm ents Source Name Type Date Date Clinician No Known DA Active [facility] 3[facility]16 [facility] Medications Ordered Filled Start Stop Current Ordering Indication Dosage Frequency Signature Comments Components Source Medication Medication Date Date Medication? Clinician (SIG) Name Name Lisinopril Lisinopril Yes Papa TAKE ONE [facility] TABLET BY [facility] Paxil Paxil Yes Papa take one [facility] Ar[facility] tablet by [facility] daily [facility] Paxil Paxil Yes Papa TAKE ONE [facility] Ar[facility]eda TABLET BY [facility] Procedures This patient has no known procedures. Encounters Start End Encounter Admission Attending Care Care Encounter Source Date/Time Date/Time Type Type Clinicians Facility Department ID 2022-02-05 [place] [place] STL[facility] [id number] Common 13:30:[address] [facility] 2022-01-30 [place] [place], STL[facility]C STLMLC [id number] Common 14:03:[address] [facility] 2021-07-23 [facility] [place], STL[facility]C STLMLC [id number] Common 14:36:[address] [facility] 2021-07-23 [facility] [place], STLMLC STLMLC [id number] Common 14:23:[address] [facility] 2021-07-23 [facility] [place], STLMLC STLMLC [id number] Common 13:56:17 Kasie [id number] [facility] 2021-07-23 Out[facility] [place], STLMLC STLMLC [id number] Common 13:31:02 Kasie [id number] [facility] 2021-07-23 [facility] [place], STLMLC STLMLC [id number] Common 12:48:56 Kasie [id number] [facility] 2021-07-23 Outpatient [place], STLMLC STLMLC [id number] Common 12:32:02 Kasie [id number] [facility] 2021-07-23 Out[facility] [place], STLMLC STLMLC [id number] Common 12:30:02 Kasie [id number] [facility] 2021-07-23 Outpatient [place], STLMLC STLMLC [id number] Common 11:53:01 Kasie [address] [facility] 2021-07-23 Outpatient [place], STLMLC STLMLC [id number] Common 11:25:[address] Kasie [id number] [facility] 2022-02-19 2022-02-19 ambulatory STLMLC STLMLC [id number] Common 00:00:00 00:00:[address] [facility] 2022-02-09 2022-02-09 ambulatory STLMLC STLMLC [id number] Common 00:00:00 00:00:[address] [facility] 2022-02-09 2022-02-09 ambulatory STLMLC STLMLC [id number] Common 00:00:00 00:00:[address] [facility] 2021-11-14 2021-11-14 ambulatory STLMLC STLMLC [id number] Common 00:00:00 00:00:[address] [facility] 2021-11-13 2021-11-13 ambulatory STLMLC STLMLC [id number] Common 00:00:00 00:00:[address] [facility] 2021-11-12 2021-11-12 ambulatory STLMLC STLMLC [id number] Common 00:00:00 00:00:[address] [facility] 2021-11-07 2021-11-07 ambulatory STLMLC STLMLC [id number] Common 00:00:00 00:00:[address] [facility] 2021-09-23 2021-09-23 ambulatory STLMLC STLMLC [id number] Common 00:00:00 00:00:[address] [facility] 2021-09-11 2021-09-13 Inpatient Ad[facility], [facility].01 [id number] [facility] 13:10:00 13:40:[address] 2021-08-26 2021-08-26 ambulatory STLMLC STLMLC [id number] Common 00:00:00 00:00:[address] [facility] 2021-08-21 2021-08-21 ambulatory STLMLC STLMLC [id number] Common 00:00:00 00:00:[address] [facility] 2021-07-09 2021-07-09 ambulatory STLMLC STLMLC [id number] Common 00:00:00 00:00:[address] [facility] 2021-07-03 2021-07-03 ambulatory STLMLC STLMLC [id number] Common 00:00:00 00:00:[address] [facility] 2021-06-09 2021-06-09 ambulatory STLMLC STLMLC [id number] Common 00:00:00 00:00:[address] [facility] 2021-04-27 2021-04-27 ambulatory STLMLC STLMLC [id number] Common 00:00:00 00:00:[address] [facility] 2021-04-02 2021-04-02 Outpatient STLMLC STLMLC [id number] Common 00:00:00 00:00:[address] [facility] 2021-04-02 2021-04-02 Outpatient STL[facility]C STL[facility]C [id number] Common 00:00:00 00:00:[address] [facility] 2021-01-28 2021-01-28 Outpatient STLMLC STLMLC [id number] Common 00:00:00 00:00:[address] [facility] 2021-01-27 2021-01-27 Outpatient STL[facility]C STL[facility]C [id number] Common 00:00:00 00:00:[address] [facility] 2020-10-10 2020-10-10 Outpatient ST[facility]MLC STLMLC [id number] Common 00:00:00 00:00:[address] [facility] 2020-10-07 2020-10-07 Outpatient STLMLC STLMLC [id number] Common 00:00:00 00:00:[address] [facility] 2020-10-02 2020-10-02 Outpatient STLMLC STLMLC [id number] Common 00:00:00 00:00:[address] [facility] 2020-08-19 2020-08-19 Outpatient ST[facility]C STL[facility]C [id number] Common 00:00:00 00:00:[address] [facility] 2020-04-24 2020-04-24 Outpatient STLMLC STLMLC [id number] Common 00:00:00 00:00:[address] [facility] 2020-04-15 2020-04-15 Outpatient STL[facility]C STL[facility]C [id number] Common 00:00:00 00:00:[address] [facility] 2020-04-03 2020-04-03 Outpatient STL[facility]C STLMLC [id number] Common 00:00:00 00:00:00 [facility] 2020-01-04 2020-01-04 [facility] [id number] Common 09:45:00 09:45:00 [facility] 2019-12-07 2019-12-07 [facility] [id number] Common 14:30:00 14:30:00 [facility] 2019-11-30 2019-11-30 [facility] [id number] Common 09:26:00 09:26:00 [facility] 2019-11-27 2019-11-27 [facility] [id number] Common 18:25:00 18:25:00 [facility] 2019-10-23 2019-10-23 [facility] [id number] Common 14:00:00 14:00:00 [facility] 2019-09-29 2019-09-29 [facility] [id number] Common 11:20:00 11:20:00 [facility] 2019-09-29 2019-09-29 [facility] [id number] Common 09:00:00 09:00:00 [facility] 2019-09-06 2019-09-06 [facility] [id number] Common 09:56:00 09:56:00 t [facility] [address] [facility] 2019-08-29 2019-08-29 [facility] [id number] Common 10:40:00 10:40:00 t [facility] [address] [facility] 2019-03-15 2019-03-15 [facility] [id number] Common 10:00:00 10:00:[address] [facility] [address] [facility] 2018-11-01 2018-11-01 [facility] [id number] Common 14:56:00 14:56:[address] [facility] 2018-09-22 2018-09-22 [facility] [id number] Common 13:13:00 13:13:[address] [facility] [address] [facility] 2018-09-12 2018-09-12 Outpatient [facility] [id number] Common 11:00:00 11:00:[address] [facility] [address] [facility] 2018-02-22 2018-02-22 Outpatient Angel Luis Hein [id number] Common 12:19:00 12:19:00 Alaina Foley Sp rodri DO [facility] 2018-02-21 2018-02-21 Outpatient Martin [facility] [id number] Common 09:00:00 09:00:[address] [facility] [address] [facility] Results Test Description Test Time Test Comments [...] code = CA) 8.9 MG/DL 8.5-10.1 N [id number] 05:01:00 Test Item Value Reference Range Interpretation Comments CREATININE (test code = CREAT) 0.8 MG/DL 0.6-1.0 N Comment: Stat creatinine if not already performedHGB [id number] 05:00:00 Test Item Value Reference Range Interpretation Comments HEMOGLOBIN (test code = HGB) 10.8 G/DL 10.4-14.9 N HEMATOCRIT (test code = HCT) 34.6 % 31.5-44.1 N - XR CHEST 1 [id number] 12:39:00 [facility] : 1955 Sex: F Name: JOSELYN GOMES [facility] : 1955 Age/S: 66 / F [id number] Unit #: [id number] Loc: [place] [address] Phys: Edison Chamorro MD Acct: [id number] Dis Date: Status: ADM IN PHONE #: [phone] Exam Date: 09/11/2021 1232 FAX #: Reason: PRE OP EXAMS: CPT: [id number] XR CHEST 1 V 41211 Fluoro Time: DAP (Gy m2): Air Kerma (mGy): B2 EXAM: - XR CHEST 1 V DATE: 09/11/2021 11:10 AM HISTORY: PRE OP COMPARISON: None FINDINGS: No airspace consolidation or pleural effusions. No pneumothorax. The cardiovascular silhouette is within normal limits. No bony lesions. IMPRESSION: No acute cardiopulmonary abnormality. at 1239 Rep orted and signed by: Kathleen Carrillo M.D. CC: Kasie Hernandez; Kavita Siddiqui MD; Edison Chamorro MD PAGE 1 Signed Report Name: JOSELYN GOMES [place] : 1955 Age/S: 66 / F [id number] Unit #: [id number] Loc: [place] [address] Phys: Edison Chamorro MD Acct: [id number] Dis Date: Status: ADM IN PHONE #: [phone] Exam Date: 09/11/2021 1232 FAX #: Reason: PRE OPEXAMS: CPT: [id number] XR CHEST 1 V 70233 Fluoro Time: DAP (Gy m2): Air Kerma (mGy): (Continued) Technologist: Karyn Kaufman, RT(R) Trnscb Date/Time: 09/11/2021 (1239) t.SDR.MOP Orig Print D/T: S: 09/11/2021 (1995) PAGE 2 Signed ReportCOVID 19 INHOUSE [id number] 12:17:00 Test Item Value Reference Range Interpretation Comments COVID 19 INHOUSE AG NEGATIVE Negative Per manu facturer, (test code = negative result s should [id number]) be treated aspr esumptive and, if inconsi stent with clinical signs andsymptoms or necessary for patient man agement, should betested with an alternative mol ecular assay. Negative resultsdo not preclude SA RS-CoV-2 infection and s hould not be usedas the s ole basis for patient man agement decisions. Nega tive results should be considered in t he context of apatient's r ecent exposures, hist ory, presence of cli nicalsigns and symptoms co nsistent with COVID-19. BASIC METABOLIC [id number] 12:12:00 Test Item Value Reference Range Interpretation [...] CA) 9.7 MG/DL 8.5-10.1 N CBC W/AUTO [id number] 12:01:00 Test Item Value Reference Range Interpretation [...]
[2022-03-16 10:51] LABS: Absolute Lymphocytes (CBC) 1.3 K/uL (0.7-4.9); Hematocrit 29.9 % (36.0-45.0); Lymphocytes % 17.9 % (15.3-44.8); MCV 85.8 fL (80-100); RBC Red Blood Cell Count 3.49 M/uL (3.86-4.86)
[2022-03-16 10:59] LABS: Protime INR 0.98
[2022-03-16] MEDS ORDERED: ASPIRIN 81 MG CHEWABLE TABLET ONE (11:03)
[2022-03-16 11:11] LABS: Potassium 3.9 mmol/L (3.5-5.1); Troponin High Sensitivity 56.7 pg/mL (<58.9)
--- NOTE | 2022-03-16 11:22 | RAD REPORT ---
EXAM DESCRIPTION: RAD - Chest Single View - 03/16/2022 10:00 am CLINICAL HISTORY: CHEST PAIN Chest pain. COMPARISON: Chest Pa And Lat (2 Views) dated 11/24/2019 FINDINGS: Portable technique limits examination quality. Mild pulmonary edema. Trace pleural effusions. The heart is moderately enlarged in size. No displaced fractures. IMPRESSION: Mild CHF versus volume overload pattern.
--- NOTE | 2022-03-16 12:15 | RAD REPORT ---
EXAM DESCRIPTION: CT - Chest For Pe Angio - 03/16/2022 11:52 am CLINICAL HISTORY: Chest pain. R/O PE COMPARISON: No comparisons TECHNIQUE: CT angiogram of the pulmonary arteries was performed with MIP. All CT scans are performed using dose optimization technique as appropriate and may include automated exposure control or mA/KV adjustment according to patient size. FINDINGS: No evidence of pulmonary thromboembolism. No acute aortic finding demonstrated. The lungs are emphysematous. Mild alveolar opacity in the right lung base noted. Scarring is present in both apices. Small pleural effusions bilaterally. Distention of the esophagus is seen with fluid. Hiatal hernia, s mall. No concerning bony finding. IMPRESSION: No evidence of pulmonary thromboembolism. Mild alveolar opacity in the right lung base may represent developing pneumonia. Trace pleural effusi ons, larger on the right. Esophageal distention with fluid and small hiatal hernia. Achalasia or secondary achalasia is a possi bility.
--- NOTE | 2022-03-16 15:02 | ER ---
Nurse's Notes [facility] Name: Joselyn Gomes Age: 66 yrs Sex: Female : 1955 Arrival Date: 03/16/2022 Time: 09:28 Bed 15 Private MD: Kasie Hernandez Diagnosis: Other pneumonia, unspecified organism;Elevated Troponin Presentation: 03/16 09:38 Chief complaint: Patient states: Headache, sore throat, cough, SOB, chest heaviness and ph "ears feel full." Home covid test negative. Coronavirus screen: Vaccine status: Patient reports receiving the 2nd dose of the covid vaccine. Ebola Screen: No symptoms or risks identified at this time. Initial Sepsis Screen: Does the patient meet any 2 criteria? No. Patient's initial sepsis screen is negative. Does the patient have a suspected source of infection? No. Patient's initial sepsis screen is negative. Risk Assessment: Do you want to hurt yourself or someone else? Patient reports no desire to harm self or others. Onset of symptoms. 09:38 Method Of Arrival: Ambulatory ph 09:38 Acuity: MISTI 3 ph Historical: - Allergies: 09:33 No Known Allergies; ph - PMHx: 09:33 Anxiety; Hypertension; ph - Immunization history:: Adult Immunizations unknown. Screenin:33 Abuse screen: Denies threats or abuse. Denies injuries from another. Nutritional ph screening: No deficits noted. Tuberculosis screening: No symptoms or risk factors identified. Fall Risk None identified. Assessment: 10:00 General: Appears in no apparent distress. comfortable, Behavior is calm, cooperative, tp1 PT complains of chest pressure but no pain. PT stated "feels like an elephant is sitting on chest. . Pain: Denies pain. Neuro: Level of Consciousness is awake, alert, obeys commands, Oriented to person, place, time, situation. Respiratory: Reports shortness of breath on exertion congestion Airway is patent Respiratory effort is even, unlabored, Breath sounds are clear bilaterally. 10:00 Cardiovascular: Patient's skin is warm and dry. GI: Abdomen is round non-distended, tp1 Patient currently denies diarrhea, nausea, vomiting. : No signs and/or symptoms were reported regarding the genitourinary system. EENT: No signs and/or symptoms were reported regarding the EENT system. Derm: Skin is pink, warm \\T\\ dry. abrasion to the lower lip and left lower arm. Musculoskeletal: Circulation, motion, and sensation intact. 11:15 Reassessment: Patient appears in no apparent distress at this time. No changes from tp1 previously documented assessment. Patient is alert, oriented x 3, equal unlabored respirations, skin warm/dry/pink. denies SOB, watching TV in bed Patient denies pain at this time. 11:39 Reassessment: left for CT via wheelchair, escorted by [employer]. tp1 11:49 Reassessment: returned from CT. tp1 11:52 Reassessment: Patient appears in no apparent distress at this time. No changes from tp1 previously documented assessment. Patient is alert, oriented x 3, equal unlabored respirations, skin warm/dry/pink. denies SOB Patient denies pain at this time. 12:38 Reassessment: provider at bedside. tp1 12:43 Reassessment: Patient appears in no apparent distress at this time. No changes from tp1 previously documented assessment. Patient is alert, oriented x 3, equal unlabored respirations, skin warm/dry/pink. resting in bed Patient denies pain at this time. 13:46 Reassessment: Patient appears in no apparent distress at this time. No changes from tp1 previously documented assessment. Patient is alert, oriented x 3, equal unlabored respirations, skin warm/dry/pink. Patient denies pain at this time. 14:46 Reassessment: Patient appears in no apparent distress at this time. No changes from tp1 previously documented assessment. Patient is alert, oriented x 3, equal unlabored respirations, skin warm/dry/pink. watching TV in bed Patient denies pain at this time. 15:42 Reassessment: Patient appears in no apparent distress at this time. No changes from tp1 previously documented assessment. Patient is alert, oriented x 3, equal unlabored respirations, skin warm/dry/pink. watching TV in bed. 16:40 Reassessment: Patient appears in no apparent distress at this time. No changes from tp1 previously documented assessment. Patient is alert, oriented x 3, equal unlabored respirations, skin warm/dry/pink. Patient denies pain at this time. 17:40 Reassessment: Patient appears in no apparent distress at this time. No changes from tp1 previously documented assessment. Patient is alert, oriented x 3, equal unlabored respirations, skin warm/dry/pink. family member at bedside Patient denies pain at this time. 18:26 Reassessment: Spoke to Jerad PENA, was asked to call back after shift change. tp1 18:31 Reassessment: Patient appears in no apparent distress at this time. No changes from tp1 previously documented assessment. Patient is alert, oriented x 3, equal unlabored respirations, skin warm/dry/pink. Patient denies pain at this time. 19:19 Reassessment: Patient and/or family updated on plan of care and expected duration. Pain vc1 level reassessed. Patient is alert, oriented x 3, equal unlabored respirations, skin warm/dry/pink. Vital Signs: 09:38 BP 137 / 78; Pulse 73; Resp 18; Temp 97.7; Pulse Ox 94% on R/A; Weight 70.76 kg; Height ph 5 ft. 1 in. (154.94 cm); 10:30 BP 130 / 69; Pulse 66; Resp 20; Pulse Ox 97% on R/A; tp1 11:53 BP 138 / 81; Pulse 68; Resp 18; Pulse Ox 96% on R/A; tp1 12:42 BP 146 / 79; Pulse 68; Resp 22; Pulse Ox 93% on R/A; tp1 13:30 BP 152 / 87; Pulse 63; Resp 21; Pulse Ox 97% on R/A; tp1 14:30 BP 153 / 83; Pulse 68; Resp 20; Pulse Ox 96% on R/A; tp1 15:30 BP 156 / 94; Pulse 65; Resp 16; Pulse Ox 97% on R/A; tp1 16:30 BP 162 / 95; Pulse 63; Resp 20; Pulse Ox 96% on R/A; tp1 17:30 BP 165 / 88; Pulse 80; Resp 22; Pulse Ox 95% on R/A; tp1 19:19 BP 154 / 79; Pulse 66; Resp 19; Pulse Ox 94% on R/A; vc1 09:38 Body Mass Index 29.48 (70.76 kg, 154.94 cm) ph ED Course: 09:28 Patient arrived in ED. mr 09:29 Kasie Hernandez is Private Physician. mr 09:30 [facility] Covarrubias FNP [facility]. jh7 09:30 Paula Sharp MD is Attending Physician. jh7 09:33 Arm band placed on. ph 09:40 Triage completed. ph 09:40 Patient has correct armband on for positive identification. Placed in gown. Bed in low tp1 position. Call light in reach. Side rails up X 1. Adult w/ patient. 09:40 Client placed on continuous cardiac and pulse oximetry monitoring. NIBP monitoring tp1 applied. 10:01 XRAY Chest (1 view) In Process Unspecified. EDMS 10:20 Elizabeth Corbett, BECKY is Primary Nurse. tp1 10:32 Inserted saline lock: 22 gauge in right forearm, using aseptic technique. Blood tp1 collected. 11:50 No provider procedures requiring assistance completed. tp1 11:53 CT Chest For PE Angio In Process Unspecified. EDMS 15:01 Saul Anglin is Hospitalizing Provider. [facility] 19:46 Patient admitted, IV remains in place. vc1 Administered Medications: 10:55 Drug: Aspirin Chewable Tablet 324 mg Route: PO; tp1 11:40 Follow up: Response: No change in condition tp1 15:41 Drug: Rocephin (cefTRIAXone) 1 grams Route: IV; Rate: 1 calculated rate; Site: right tp1 forearm; 16:59 Follow up: Response: No adverse reaction; IV Status: Completed infusion; IV Intake: tp1 100ml 16:57 Drug: AZITHromycin 500 mg Route: IVPB; Infused Over: 1 hrs; Site: right antecubital; tp1 18:27 Follow up: IV Status: Completed infusion; IV Intake: 250ml tp1 18:27 Follow up: Response: No adverse reaction tp1 Medication: 11:51 VIS not applicable for this client. tp1 Intake: 16:59 IV: 100ml; Total: 100ml. tp1 18:27 IV: 250ml; Total: 350ml. tp1 Outcome: 15:01 Decision to Hospitalize by Provider. 7 19:45 Admitted to Med/surg accompanied by nurse, via wheelchair, room 201, Report called to kobe Aponte RN 19:45 Condition: good 19:45 Instructed on the need for admit. 19:46 Patient left the ED. 1 Signatures: Dispatcher [employer] EDMS Autumn Gusman Guerita Hernandezricia, RN RN Elizabeth Villagomez, RN RN tp1 Ela Valdez, BECKY RN 1 Malena Covarrubias, NAPHTHOL SOAPING MACHINE OPERATOR NAPHTHOL SOAPING MACHINE OPERATOR 7 Corrections: (The following items were deleted from the chart) 10:22 10:00 General: Appears in no apparent distress. comfortable, Behavior is calm, tp1 cooperative, tp1 10:36 10:00 Respiratory: Airway is patent Respiratory effort is even, unlabored, tp1 tp1 11:53 11:15 Reassessment: Patient appears in no apparent distress at this time. No changes tp1 from previously documented assessment. Patient is alert, oriented x 3, equal unlabored respirations, skin warm/dry/pink. Patient denies pain at this time. tp1 12:43 11:53 BP 138 / 81; Pulse 68bpm; Resp 18bpm; Pulse Ox 97% RA; tp1 tp1 13:47 10:00 Derm: Skin is pink, warm \\T\\ dry. tp1 tp1
--- NOTE | 2022-03-16 15:02 | EDPHYS ---
Physician Documentation [facility] Name: Joselyn Gomes Age: 66 yrs Sex: Female : 1955 Arrival Date: 03/16/2022 Time: 09:28 Bed 15 Private MD: Kasie Hernandez ED Physician Paula Sharp HPI: 03/16 09:35 This 66 yrs old Female presents to ER via Ambulatory with complaints of Headache, Ear jh7 Pain, Shortness Of Breath. 09:35 Onset: The symptoms/episode began/occurred 3 day(s) ago. Patient presents with jh7 headache, ear pain, shortness of breath, and chest heaviness since Wednesday. Reports that she took a home COVID test and that it was negative. States that the headache has improved but that the heaviness in her chest is worsened. States that it feels like there is an elephant sitting on her chest when she takes a deep breath.. Historical: - Allergies: 09:33 No Known Allergies; ph - PMHx: 09:33 Anxiety; Hypertension; ph - Immunization history:: Adult Immunizations unknown. ROS: 09:35 Constitutional: Negative for fever, chills, and weight loss, Eyes: Negative for injury, jh7 pain, redness, and discharge, Neck: Negative for injury, pain, and swelling, Abdomen/GI: Negative for abdominal pain, nausea, vomiting, diarrhea, and constipation, Back: Negative for injury and pain, MS/Extremity: Negative for injury and deformity, Skin: Negative for injury, rash, and discoloration. 09:35 ENT: Positive for ear pain. 09:35 Cardiovascular: Positive for chest pain, Negative for edema, palpitations. 09:35 Respiratory: Positive for shortness of breath, Negative for wheezing. 09:35 Neuro: Positive for headache, Negative for altered mental status, dizziness, loss of consciousness, syncope, weakness. 09:35 All other systems are negative. Exam: 09:35 Constitutional: This is a well developed, well nourished patient who is awake, alert, jh7 and in no acute distress. Head/Face: Normocephalic, atraumatic. ENT: Nares patent. No nasal discharge, no septal abnormalities noted. Tympanic membranes are normal and external auditory canals are clear. Oropharynx with no redness, swelling, or masses, exudates, or evidence of obstruction, uvula midline. Mucous membranes moist. Neck: Trachea midline, no thyromegaly or masses palpated, and no cervical lymphadenopathy. Supple, full range of motion without nuchal rigidity, or vertebral point tenderness. No Meningismus. Cardiovascular: Regular rate and rhythm with a normal S1 and S2. No gallops, murmurs, or rubs. Normal PMI, no JVD. No pulse deficits. Respiratory: Lungs have equal breath sounds bilaterally, clear to auscultation and percussion. No rales, rhonchi or wheezes noted. No increased work of breathing, no retractions or nasal flaring. Abdomen/GI: Soft, non-tender, with normal bowel sounds. No distension or tympany. No guarding or rebound. No evidence of tenderness throughout. Back: No spinal tenderness. No costovertebral tenderness. Full range of motion. Skin: Warm, dry with normal turgor. Normal color with no rashes, no lesions, and no evidence of cellulitis. MS/ Extremity: Pulses equal, no cyanosis. Neurovascular intact. Full, normal range of motion. Neuro: Awake and alert, GCS 15, oriented to person, place, time, and situation. Motor strength 5/5 in all extremities. Sensory grossly intact. Normal gait. Vital Signs: 09:38 BP 137 / 78; Pulse 73; Resp 18; Temp 97.7; Pulse Ox 94% on R/A; Weight 70.76 kg; Height ph 5 ft. 1 in. (154.94 cm); 10:30 BP 130 / 69; Pulse 66; Resp 20; Pulse Ox 97% on R/A; tp1 11:53 BP 138 / 81; Pulse 68; Resp 18; Pulse Ox 96% on R/A; tp1 12:42 BP 146 / 79; Pulse 68; Resp 22; Pulse Ox 93% on R/A; tp1 13:30 BP 152 / 87; Pulse 63; Resp 21; Pulse Ox 97% on R/A; tp1 14:30 BP 153 / 83; Pulse 68; Resp 20; Pulse Ox 96% on R/A; tp1 15:30 BP 156 / 94; Pulse 65; Resp 16; Pulse Ox 97% on R/A; tp1 16:30 BP 162 / 95; Pulse 63; Resp 20; Pulse Ox 96% on R/A; tp1 17:30 BP 165 / 88; Pulse 80; Resp 22; Pulse Ox 95% on R/A; tp1 19:19 BP 154 / 79; Pulse 66; Resp 19; Pulse Ox 94% on R/A; vc1 09:38 Body Mass Index 29.48 (70.76 kg, 154.94 cm) ph MDM: 09:40 Patient medically screened. [facility] 15:04 Differential diagnosis: Pneumonia, acute [place], upper respiratory infection, pulmonary jh7 embolism. Data reviewed: vital signs, nurses notes, lab test result(s), EKG, radiologic studies, CT scan, plain films. 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 Counseling: I had a detailed discussion with the patient and/or guardian regarding: the historical points, exam findings, and any diagnostic results supporting the discharge/admit diagnosis, the need for further work-up and treatment in the hospital. ED course: The patient was admitted under observation status to Dr. Saul Anglin. The patient remained hemodynamically stable throughout her ER visit and all questions and concerns were addressed.. 03/16 09:46 Order name: Basic Metabolic Panel; Complete Time: 11:25 [facility] 03/16 09:46 Order name: CBC with Diff; Complete Time: 11:05 [facility] 03/16 09:46 Order name: D-Dimer; Complete Time: 11:25 [facility] 03/16 09:46 Order name: PT-INR; Complete Time: 11:25 [facility] 03/16 09:46 Order name: Troponin HS; Complete Time: 11:25 [facility] 03/16 09:46 Order name: COVID-19 SARS RT PCR (Document "Date of Onset" if Symptomatic); Complete [facility] Time: 12:38 03/16 09:46 Order name: XRAY Chest (1 view); Complete Time: 11:25 [facility] 03/16 09:46 Order name: EKG; Complete Time: 09:47 [facility] 03/16 09:46 Order name: Cardiac monitoring; Complete Time: 10:19 [facility] 03/16 11:06 Order name: CT Chest For PE Angio; Complete Time: 12:22 [facility] 03/16 12:41 Order name: Troponin High Sensitivity; Complete Time: 14:31 [facility] 03/16 09:46 Order name: EKG - Nurse/Tech; Complete Time: 10:19 [facility] 03/16 09:46 Order name: IV Saline Lock; Complete Time: 10:32 [facility] 03/16 09:46 Order name: Labs collected and sent; Complete Time: 10:32 [facility] 03/16 09:46 Order name: O2 Per Protocol; Complete Time: 10:05 [facility] 03/16 09:46 Order name: O2 Sat Monitoring; Complete Time: 10:05 7 EC:09 Rate is 65 beats/min. Rhythm is regular. QRS Hol[place] is Normal. PA interval is normal at 7 134 msec. QRS interval is normal at 86 msec. QT interval is normal at 456 msec. No Q waves. T waves are Normal. No ST changes noted. Clinical impression: Normal ECG. Administered Medications: 10:55 Drug: Aspirin Chewable Tablet 324 mg Route: PO; tp1 11:40 Follow up: Response: No change in condition tp1 15:41 Drug: Rocephin (cefTRIAXone) 1 grams Route: IV; Rate: 1 calculated rate; Site: right tp1 forearm; 16:59 Follow up: Response: No adverse reaction; IV Status: Completed infusion; IV Intake: tp1 100ml 16:57 Drug: AZITHromycin 500 mg Route: IVPB; Infused Over: 1 hrs; Site: right antecubital; tp1 18:27 Follow up: IV Status: Completed infusion; IV Intake: 250ml tp1 18:27 Follow up: Response: No adverse reaction tp1 Disposition: 03/17 07:41 STAFF ATTESTATION: The patient's history, exam findings, diagnostics and a summary of sd2 any interventions or procedures was reviewed in detail with the ED HANDY. I confirm the diagnosis as documented by the HANDY and I agree with the care plan articulated in the disposition section with regards to our discussion of the patient's case. Paula Sharp MD. Disposition Summary: 03/16/22 15:01 Hospitalization Ordered Hospitalization Status: Observation [facility] Provider: Saul Anglin [facility] Location: Telemetry/MedSurg (observation) [facility] Condition: Stable [facility] Problem: new [facility] Symptoms: are unchanged [facility] Bed/Room Type: Standard [facility] Room Assignment: 201(03/16/22 18:06) bd Diagnosis - Other pneumonia, unspecified organism [facility] - Elevated Troponin [facility] Forms: - Medication Reconciliation Form [facility] - SBAR form [facility] Signatures: Dispatcher [employer] Aura Joe Patricia, RN RN Elizabeth Corbett RN RN tp1 Malena Covarrubias, WING COVERER WING COVERER [facility] Paula Sharp MD MD sd2 Corrections: (The following items were deleted from the chart) 03/16 18:06 15:01 daryl mirnada
[2022-03-16] MEDS ORDERED: CEFTRIAXONE 1000 MG/VIAL ONE (15:43)
[2022-03-16] MEDS ORDERED: NA CHLORIDE 0.9% 100 ML ONE (15:44)
[2022-03-16] MEDS ORDERED: AZITHROMYCIN IV 500 MG in NA CHLORIDE 0.9% 250 ML IVPB ONE (16:00)
--- NOTE | 2022-03-16 17:42 | P.HP ---
Certification for Inpatient Patient admitted to: Observation With expected LOS: <2 Midnights Practitioner: I am a practitioner with admitting privileges, knowledge of patient current condition, hospital course, and medical plan of care. Services: Services provided to patient in accordance with Admission requirements found in Title 42 Section 412.3 of the Code of Federal Regulations Patient History Date of Service: 03/16/22 Reason for admission: Chest pressure History of Present Illness: 66-year-old woman with a history of hypertension and anxiety disorder presented to the emergency department with a complaint of chest tightness and shortness of breath of 2 days duration. Patient also reports nasal congestion and stuffiness, no nasal discharge. Checks x-ray done in the ED shows no acute disease. D-dimer elevated. CTA thorax done showed possible mild pneumonia, no PE. It also demonstrated emphysema. Patient 2 sets of troponins showed mild increase. She denied any chest pain. Patient is placed in observation for further management. Allergies No Known Allergies Allergy (Verified 03/16/22 21:45) Home Medications: Lisinopril [Zestril] 10 mg PO DAILY 11/24/19 PARoxetine HCL [Paxil] 10 mg PO DAILY 11/24/19 Omeprazole [Prilosec] 40 mg PO 1X 03/16/22 - Past Medical/Surgical History -: Hypertension -: Anxiety disorder - Social History Alcohol use: No CD- Drugs: No Place of Residence: Home Review of Systems Other: Except as documented, all other systems reviewed and negative. Physical Examination - Physical Exam General: Alert, In no apparent distress, Oriented x3 HEENT: PERRLA, Mucous membr. moist/pink, EOMI, Sclerae nonicteric Neck: Supple, JVD not distended Respiratory: Clear to auscultation bilaterally, Diminished Cardiovascular: No edema, Regular rate/rhythm, Normal S1 S2, No murmurs Capillary refill: <2 Seconds Gastrointestinal: Normal bowel sounds, Soft and benign, Non-distended, No tenderness Musculoskeletal: No swelling, No tenderness Integumentary: No rashes, No erythema, No cyanosis Neurological: Normal speech, Normal strength at 5/5 x4 extr Lymphatics: No axilla or inguinal lymphadenopathy - Studies Laboratory Data (last 24 hrs) 03/16/22 10:28: PT 10.8, INR 0.98 03/16/22 10:28: WBC 7.10, Hgb 10.0 L, Hct 29.9 L, Plt Count 244 03/16/22 10:28: Sodium 140, Potassium 3.9, BUN 10, Creatinine 0.89, Glucose 93 Assessment and Plan - Problems (Diagnosis) (1) Chest tightness Current Visit: Yes Status: Acute (2) Elevated troponin Current Visit: Yes Status: Acute (3) Hypertension Current Visit: Yes Status: Acute - Plan Place patient under observation. Trend troponin. EKG unremarkable CTA thorax is showing emphysema Patient chest tightness probably secondary to COPD exacerbation. CT also reported possible pneumonia. Will treat with bronchodilators, oral Levaquin and see how she responds. Aspirin. Check TSH. - Advance Directives Does patient have a Living Will: No Does patient have a Durable POA for Healthcare: No
[2022-03-16] MEDS ORDERED: ACETAMINOPHEN 500 MG TAB PO PRN (19:55)
[2022-03-16] MEDS ORDERED: ONDANSETRON 4 MG/2 ML VIAL IV PRN (19:55)
[2022-03-16] MEDS: IPRATROPIUM BROM 0.5MG/2.5ML NEB SCH (20:00)
[2022-03-16] MEDS: ALBUTEROL 2.5 MG/3 ML NEB SOL NEB SCH (20:00)
[2022-03-16 20:18] VITALS: BMI 29.5
[2022-03-16] MEDS ORDERED: levoFLOXacin 750 MG TAB PO SCH (22:00)
[2022-03-17] MEDS: IPRATROPIUM BROM 0.5MG/2.5ML NEB SCH ×2 (02:00→08:00)
[2022-03-17] MEDS: ALBUTEROL 2.5 MG/3 ML NEB SOL NEB SCH ×2 (02:00→08:00)
[2022-03-17 05:51] LABS: Absolute Lymphocytes (CBC) 1.1 K/uL (0.7-4.9); Hematocrit 30.4 % (36.0-45.0); Lymphocytes % 17.3 % (15.3-44.8); MCV 86.2 fL (80-100); MPV 7.8 fL (7.6-11.3); RBC Red Blood Cell Count 3.53 M/uL (3.86-4.86)
[2022-03-17 06:03] LABS: Magnesium 2.3 mg/dL (1.8-2.4); Potassium 4.2 mmol/L (3.5-5.1); Thyroid Stimulating Hormone 2.5 uIU/mL (0.360-3.740)
[2022-03-17] MEDS ORDERED: ENOXAPARIN 40 MG/0.4 ML SQ SCH (09:00)
[2022-03-17] MEDS ORDERED: ALBUTEROL 2.5 MG/3 ML NEB SOL NEB PRN (10:52)
[2022-03-17] MEDS ORDERED: IPRATROPIUM BROM 0.5MG/2.5ML NEB PRN (12:19)
--- NOTE | 2022-03-17 12:45 | P.DS ---
Admission Date: 03/16/22 Discharge Date: 03/17/22 Reason for Admission: Chest pressure - Problems (1) Chest tightness Current Visit: Yes Status: Acute (2) Elevated troponin Current Visit: Yes Status: Acute (3) Hypertension Current Visit: Yes Status: Acute Brief History of Present Illness: 66-year-old woman with a history of hypertension and anxiety disorder presented to the emergency department with a complaint of chest tightness and shortness of breath of 2 days duration. Patient also reports nasal congestion and stuffiness, no nasal discharge. Checks x-ray done in the ED shows no acute disease. D-dimer elevated. CTA thorax done showed possible mild pneumonia, no PE. It also demonstrated emphysema. Patient 2 sets of troponins showed mild increase. She denied any chest pain. Patient placed under observation for further management. Hospital Course: Troponin trended flat. Patient was stable on room air with good oxygen saturation. She was treated with bronchodilators and currently states his symptoms have resolved. Echocardiogram done and the result is pending. ACS has been ruled out. Patient's symptoms could be related to emphysema versus COPD. She denies any history of smoking or exposure to secondhand smoke. Patient is discharged with referral to pulmonology-Dr. Judge for further evaluation for COPD. Vital Signs/Physical Exam: Temp Pulse Resp BP Pulse Ox 97.2 F 83 16 171/62 H 95 03/17/22 11:34 03/17/22 11:34 03/17/22 11:34 03/17/22 11:34 03/17/22 11:34 General: Alert, In no apparent distress, Oriented x3 HEENT: Mucous membr. moist/pink Neck: JVD not distended Respiratory: Clear to auscultation bilaterally, Normal air movement Cardiovascular: No edema, Regular rate/rhythm, Normal S1 S2 Gastrointestinal: Normal bowel sounds, Soft and benign, Non-distended, No tenderness Musculoskeletal: No swelling Integumentary: No rashes Neurological: Normal speech, Normal strength at 5/5 x4 extr Lymphatics: No axilla or inguinal lymphadenopathy Laboratory Data at Discharge: WBC 6.20 K/uL (4.3-10.9) 03/17/22 05:20 Hgb 10.1 g/dL (12.0-15.0) L 03/17/22 05:20 Hct 30.4 % (36.0-45.0) L 03/17/22 05:20 Plt Count 219 K/uL (152-406) 03/17/22 05:20 PT 10.8 SECONDS (9.5-12.5) 03/16/22 10:28 INR 0.98 03/16/22 10:28 Sodium 141 mmol/L (136-145) 03/17/22 05:20 Potassium 4.2 mmol/L (3.5-5.1) 03/17/22 05:20 BUN 11 mg/dL (7-18) 03/17/22 05:20 Creatinine 0.66 mg/dL (0.55-1.3) 03/17/22 05:20 Glucose 97 mg/dL (74-106) 03/17/22 05:20 Phosphorus 4.0 mg/dL (2.5-4.9) 03/17/22 05:20 Magnesium 2.3 mg/dL (1.8-2.4) 03/17/22 05:20 Home Medications: Lisinopril [Zestril] 10 mg PO DAILY 11/24/19 PARoxetine HCL [Paxil] 10 mg PO DAILY 11/24/19 Omeprazole [Prilosec] 40 mg PO 1X 03/16/22 Followup: Kasie Hernandez NP [Primary Care Provider] -
[2022-03-17] MEDS ORDERED: lisinopriL 10 MG TAB PO SCH (13:00)
[2022-03-18 02:28] VITALS: TEMP 97.7
[2022-03-18 02:55] VITALS: BP 165/88; O2SAT 95
--- NOTE | 2022-03-18 06:37 | EKG ---
Test Date: 2022-03-16 Test Time: 10:09:35 Embosser Operator: LIZETH MEASUREMENT RESULTS: Intervals: Rate: 65 UT: 134 QRSD: 86 QT: 456 QTc: 474 [place]: P: 56 UT: 134 QRS: -2 T: 11 INTERPRETIVE STATEMENTS: Normal sinus rhythm Voltage criteria for left ventricular hypertrophy Abnormal ECG Compared to ECG 11/24/2019 07:05:13 Sinus bradycardia no longer present Electronically Signed On 03-18-22 06:32:10 CDT by Harry Christy
--- NOTE | 2022-03-18 08:34 | ECHO ---
HEIGHT: 5 ft 1 in WEIGHT: 156 lb 0 oz DATE OF STUDY: 03/17/[address]: Saul Anglin MD 2-DIMENSIONAL: YES M.MODE: YES DOPPLER: YES COLOR FLOW: YES TDS: PORTABLE: YES DEFINITY: BUBBLE STUDY: DIAGNOSIS: ELEVATED TROPONIN CARDIAC HISTORY: CATHERIZATION: SURGERY: PROSTHETIC VALVE: PACEMAKER: MEASUREMENTS (cm) DIASTOLIC (NORMALS) SYSTOLIC (NORMALS) IVSd 1.0 (0.6-1.2) LA Diam (1.9-4.0) LVEF 50% LVIDd 5.3 (3.5-5.7) LVIDs 3.9 (2.0-3.5) %FS 26% LVPWd 1.1 (0.6-1.2) Ao Diam 2.7 (2.0-3.7) 2 DIMENSIONAL ASSESSMENT: RIGHT ATRIUM: NORMAL LEFT ATRIUM: NORMAL RIGHT VENTRICLE: NORMAL LEFT VENTRICLE: NORMAL TRICUSPID VALVE: NORMAL MITRAL VALVE: NORMAL PULMONIC VALVE: NORMAL AORTIC VALVE: NORMAL PERICARDIAL EFFUSION: NONE AORTIC ROOT: NORMAL LEFT VENTRICULAR WALL MOTION: NORMAL DOPPLER/COLOR FLOW: MILD TRICUSPID REGURGITATION COMMENTS: MILD TRICUSPID REGURGITATION. EJECTION FRACTION 50%. MITRAL ANNULAR CALCIFICATION. NO EFFUSION. NO WALL MOTION ABNORMALITY. TECHNOLOGIST: CARISSA MYERS
[2022-03-18] MEDS ORDERED: lisinopriL 10 MG TAB PO SCH (12:30)
== END 2022-03-17 15:48 | disposition home or self-care (01) ==
LOC: ER 09:25 → ERHOLD 17:22 → 2ND 19:36
PROVIDERS: ADMIT Internal Medicine; ATTEND Internal Medicine
DX: J43.9 Emphysema, unspecified (principal); I10 Essential (primary) hypertension; F41.9 Anxiety disorder, unspecified; R77.8 Other specified abnormalities of plasma proteins; Z20.822 Contact with and (suspected) exposure to COVID-19
CPT/HCPCS: 93005; 93306; 85025 ×2; 80048 ×2; 36415; 83735; 84100; 85610; 85379; 84443; 84484 ×4; 84439; 71275; 71045; 99285; U0003; Q9967; J0456; J1650; J7050; G0378 ×3